=== PATIENT | female | born 1955 | race Caucasian/White ===

== ENCOUNTER 2016-09-27 10:06 | Outpatient (CLI) | payer OTHER ==
--- NOTE | 2016-10-05 16:39 | DIAGNOSTIC IMAGING REPORT ---
PROCEDURE: US ECHOCARDIOGRAM INDICATION: Syncope and abnormal electrocardiogram TECHNIQUE: This is a technically adequate study. The patient in sinus rhythm during the study. COMPARISON: None FINDINGS: Left ventricle normal in size with end diastolic dimension of 4.9 cm. Normal wall thickness. Normal wall motion. Ejection fraction is normal at 63%. There is grade 2 diastolic dysfunction with indeterminante left atrial pressure. Right ventricle normal in size and function. Mildly dilated left atrium. Normal size right atrium. Aortic valve normal in structure and function. Mitral valve normal in structure. There is mild insufficiency. Tricuspid valve normal in structure and function with trace insufficiency. Pulmonary artery systolic pressure estimated at 36 mmHg which is mildly elevated. Pulmonic valve normal in structure and function with trace insufficiency. Ascending aorta and normal in size at 3.1 cm. Pericardium appears normal without pericardial effusion. IMPRESSION: Normal left ventricular ejection fraction. Grade 2 diastolic dysfunction. Mild mitral regurgitation. Mild left atrial enlargement. Indeterminate left atrial pressure. Mild pulmonary hypertension.
== END 2016-09-27 23:00 ==
LOC: US SRH 10:06
DX: I34.0 Nonrheumatic mitral (valve) insufficiency (principal); I51.7 Cardiomegaly; I27.2 Other secondary pulmonary hypertension

== ENCOUNTER 2016-11-06 12:45 | Outpatient (CLI) | payer OTHER ==
--- NOTE | 2016-11-12 13:08 | DIAGNOSTIC IMAGING REPORT ---
REFERRING PHYSICIAN/PROVIDER: Obdulia Reynolds MD ATTENDING PHYSICIAN/PROVIDER: Alonso Simons MD CONSULTING FITTING ROOM MAINTENANCE MECHANIC: Kamar Pierson Jr MD PROCEDURE PERFORMED: Nuclear stress test INDICATION: SYNCOPE RADIOPHARMACEUTICAL: The patient received 33.0 mCi of technetium 99 sestamibi during exercise stress. On day two the patient received 30.0 mCi of technetium 99 sestamibi during resting. This is a 2-day stress protocol. CARDIAC STRESS: The patient was exercised according to the Cheng protocol for 6 minutes and 42 seconds achieving a work level of METs 8.0. The resting heart rate of 61 beats per minute macey to a maximal heart rate of 148 beats per minute. The bowel represents 93% of the maximal age predicted heart rate. The resting blood pressure 141/70 mmHg macey to a maximal blood pressure of 239/87 mmHg. The exercise test was stopped due to target heart rate achieved. The patient had exaggerated blood pressure response and no chest pain. There are no evidence of significant arrhythmias. The patient had ST depressions of horizontal downsloping. Overall it was considered to be a positive stress test suggestive of ischemia. RAW DATA: There is appropriate radiotracer uptake of the LV myocardium. Motion correction software was applied. QUANTITATIVE GATED SPECT: LV wall motion was normal. LV ejection fraction during stress was 65%. LV end-diastolic volume was 101 ml. Calculated t.i.d. was 0.88. MYOCARDIAL PERFUSION STUDY: There is no evidence of fixed or reversible perfusion defects. IMPRESSION: 1. This is a normal myocardial perfusion study. 2. Normal LV ejection fraction and normal LV wall motion. 3. No evidence of chest pain with average exercise capacity. 4. Abnormal stress EKG with ST changes, possibly could be secondary to severe hypertensive blood pressure response. 5. Overall this is a low risk study given no evidence of chest pain and no evidence of ischemia based on myocardial perfusion study.
== END 2016-11-06 23:00 ==
LOC: RT SRH 12:45
PROC: 4A02XM4 Measurement of Cardiac Total Activity, External Approach (ICD-10-PCS; principal; 2016-11-06)
DX: R55 Syncope and collapse (principal)

== ENCOUNTER 2017-01-18 11:01 | Outpatient (CLI) | payer OTHER ==
--- NOTE | 2017-01-18 13:37 | DIAGNOSTIC IMAGING REPORT ---
PROCEDURE: MG BILATERAL SCREENING W/CAD INDICATION: Screening. New baseline. Family history breast carcinoma (cousin, sister). TECHNIQUE: Bilateral CC and MLO digital views. COMPARISON: None. FINDINGS: Computer-aided detection applied. Moderately dense a 5 mm normal intramammary lymph node in the upper outer right breast. No evidence of mass or suspicious calcification. IMPRESSION: 1. Negative mammogram RESULT CODE: 1- Negative. A. A negative report should not delay biopsy if a dominant or clinically suspicious mass is present. 10-15% of cancers are not identified by x-ray. B. A negative report may reinforce clinical impression. C. Adenosis and dense breasts may obscure an underlying neoplasm. D. False positive reports average 6-10%. E.. A yearly screening mammogram is recommended. A reminder letter will be scheduled.
== END 2017-01-18 23:00 ==
LOC: MAM SRH 11:01
DX: Z12.31 Encounter for screening mammogram for malignant neoplasm of breast (principal); Z80.3 Family history of malignant neoplasm of breast